=== PATIENT | female | born 1980 | race Asian ===

== ENCOUNTER 2021-11-03 05:53 | Observation (INO) | payer OTHER, BC ==
[2021-10-28 12:06] LABS: BASOPHILS % (AUTO) 0.4 % (0.0-5.0); HEMATOCRIT 41.8 % (36-48); LYMPHOCYTES % (AUTO) 32.3 % (21.0-51.0); MEAN CORPUSCULAR HEMOGLOBIN 32.2 pg (27.0-33.0); MEAN CORPUSCULAR VOLUME 94.8 fL (79-99); MONOCYTES % (AUTO) 8.3 % (3.0-13.0); NEUTROPHILS % (AUTO) 57.8 % (40.0-77.0); PLATELET COUNT (AUTO) 246 K/uL (130-400); RED BLOOD CELL COUNT(AUTO) 4.41 MIL/uL (4.00-5.50); RED CELL DISTRIBUTION WIDTH 11.9 % (11.0-15.5); WHITE BLOOD COUNT (AUTO) 4.9 K/uL (4.8-10.8)
[2021-11-02 08:59] VITALS: BP 107/57
[2021-11-03] VITALS (26 sets, daily range): BP systolic 90–127; BP diastolic 42–81
[~2021-11-03] VITALS: Ht 149.9 cm; Wt 51.8 kg
[~2021-11-03 05:53] MED LIST: CETI-89 PO; MELATONIN PO; METO25TA6 PO; MULTIVITAMIN PO
[2021-11-03] MEDS ORDERED: MIDAZOLAM HCL 1 MG/ML 2ML VIAL ONE ×2 (06:24→06:51)
[2021-11-03] MEDS ORDERED: FENTANYL CITRATE PF 50 MCG/1 ML 2ML VIAL ONE ×2 (06:24)
[2021-11-03] MEDS ORDERED: PROPOFOL 10 MG/ML 20ML VIAL IV ONE (06:35)
[2021-11-03] MEDS ORDERED: ROCURONIUM 10MG/1ML SYR 10 MG/ML ML ONE (06:36)
[2021-11-03] MEDS ORDERED: CEFAZOLIN SODIUM 1 GM VIAL ONE (06:36)
[2021-11-03] MEDS ORDERED: MORPHINE PF 100MG/10ML AMP IV ONE (06:37)
[2021-11-03] MEDS ORDERED: ONDANSETRON 4MG INJ ONE (06:39)
[2021-11-03] MEDS ORDERED: SCOPOLAMINE HYDROBROMIDE 1 EACH ADH..PATCH TD ONE (06:42)
[2021-11-03] MEDS ORDERED: CEFAZOLIN SODIUM 2 GM VIAL IV ONE (07:10)
[2021-11-03] MEDS ORDERED: ESTROGENS,CONJUGATED 0.625 MG/GM 42.5 GM VAG CRM VG ONE (07:51)
[2021-11-03] MEDS ORDERED: LACTATED RINGERS 1000ML 1,000 ML IV SCH (08:00)
[2021-11-03] MEDS ORDERED: CEFAZOLIN SODIUM 1 GM VIAL IVP ONE (08:00)
[2021-11-03] MEDS ORDERED: NEOSTIGMINE 5MG/5ML SYR IV ONE (08:05)
[2021-11-03] MEDS ORDERED: GLYCOPYRROLATE 1 MG/5 ML SYRINGE ONE (08:05)
[2021-11-03] MEDS ORDERED: PROMETHAZINE HCL 25 MG/ML 1ML AMPULE IM PRN ×2 (11:00)
[2021-11-03] MEDS ORDERED: BISACODYL 10 MG SUPP.RECT RC PRN (11:00)
[2021-11-03] MEDS ORDERED: IBUPROFEN 600 MG TABLET PO PRN (11:00)
[2021-11-03] MEDS ORDERED: MEPERIDINE-PF 75 MG/ML SYG IM PRN (11:00)
[2021-11-03] MEDS ORDERED: ACETAMINOPHEN WITH CODEINE 1 TAB TAB PO PRN (11:00)
[2021-11-03] MEDS ORDERED: ONDANSETRON 4MG INJ IVP PRN (12:00)
[2021-11-03] MEDS: DEXTROSE 5 %-0.45 % NACL 1,000 ML IV PRN ×2 (12:03→18:25)
[2021-11-03] MEDS: CEFAZOLIN SODIUM 1 GM VIAL IVP SCH (15:58)
[2021-11-03] MEDS ORDERED: FLU VACC QS2021-22(6MOS UP)/PF 60 MCG/0.5 ML ML IM ONE (21:00)
[2021-11-03] MEDS: DOCUSATE SODIUM 100 MG CAP PO PRN (21:24)
[2021-11-03] MEDS: SIMETHICONE 80 MG TAB.CHEW PO PRN (21:24)
[2021-11-04] MEDS: CEFAZOLIN SODIUM 1 GM VIAL IVP SCH (00:06)
[2021-11-04] MEDS: DEXTROSE 5 %-0.45 % NACL 1,000 ML IV PRN (02:41)
[2021-11-04] MEDS ORDERED: IBUPROFEN 800 MG TAB PO PRN (03:00)
[2021-11-04] MEDS ORDERED: HYDROCODONE/ACETAMINOPHEN 5/325 MG TAB PO PRN (03:00)
[2021-11-04] MEDS ORDERED: ACETAMINOPHEN WITH CODEINE 1 TAB TAB PO PRN (03:00)
[2021-11-04 03:49] VITALS: BP 111/48
[2021-11-04 06:41] LABS: HEMATOCRIT 32.5 % (36-48); MEAN CORPUSCULAR HEMOGLOBIN 32.2 pg (27.0-33.0); MEAN CORPUSCULAR HGB CONC 33.5 g/dL (32.0-36.0); MEAN CORPUSCULAR VOLUME 95.9 fL (79-99); RED BLOOD CELL COUNT(AUTO) 3.39 MIL/uL (4.00-5.50); RED CELL DISTRIBUTION WIDTH 11.9 % (11.0-15.5); WHITE BLOOD COUNT (AUTO) 5.3 K/uL (4.8-10.8)
[2021-11-04 08:00] VITALS: BP 92/56
[2021-11-04] MEDS: DOCUSATE SODIUM 100 MG CAP PO PRN (09:14)
[2021-11-04] MEDS: SIMETHICONE 80 MG TAB.CHEW PO PRN (09:14)
[2021-11-04] MEDS ORDERED: ACET1TAB25 PO (09:46)
== END 2021-11-04 10:25 | disposition home or self-care (01) ==
LOC: DAH 05:53 → DAHIP 05:54 → DAH 05:54 → WSH 10:00
PROVIDERS: ADMIT Obstetrics & Gynecology; ATTEND Obstetrics & Gynecology
DX: N81.2 Incomplete uterovaginal prolapse (principal); Z20.822 Contact with and (suspected) exposure to COVID-19; N92.0 Excessive and frequent menstruation with regular cycle; Z90.710 Acquired absence of both cervix and uterus; Z79.899 Other long term (current) drug therapy; Z98.890 Other specified postprocedural states; Z23 Encounter for immunization; Z71.85 Encounter for immunization safety counseling
CPT/HCPCS: 58260; G0008; 36415; 84703; 85025; 85027; 86850; 86900; 86901; 87635; 90471; 90686; 96374; 96375; 96376; A4344; A4351; C9803; G0378; J0690; J2250; J2274; J2405; J2704; J2710; J3010; J3490; J7120; Q2035

== ENCOUNTER → 2023-09-08 | Outpatient (CLI) | payer OTHER, BC ==
[~2023-09-08] MED LIST changes: +ACET-2079 PO
[2023-09-08 12:14] LABS: BASOPHILS # (AUTO) 0.02 K/uL (0.00-0.20); BASOPHILS % (AUTO) 0.4 % (0.0-5.0); EOSINOPHILS # (AUTO) 0.06 K/uL (0.00-0.70); EOSINOPHILS % (AUTO) 1.2 % (0.0-8.0); HEMATOCRIT 40.4 % (36-48); IMMATURE GRANULOCYTE ABSOLUTE 0.01 K/uL (0-1); LYMPHOCYTES # (AUTO) 1.9 K/uL (1.0-4.8); LYMPHOCYTES % (AUTO) 36.3 % (21.0-51.0); MEAN CORPUSCULAR HEMOGLOBIN 32.2 pg (27.0-33.0); MEAN CORPUSCULAR HGB CONC 33.9 g/dL (32.0-36.0); MEAN CORPUSCULAR VOLUME 95.1 fL (79-99); MONOCYTES # (AUTO) 0.4 K/uL (0.1-1.0); MONOCYTES % (AUTO) 8.4 % (3.0-13.0); NEUTROPHILS # (AUTO) 2.8 K/uL (1.8-7.7); NEUTROPHILS % (AUTO) 53.5 % (40.0-77.0); PLATELET COUNT (AUTO) 278 K/uL (130-400); RED BLOOD CELL COUNT(AUTO) 4.25 MIL/uL (4.00-5.50); WHITE BLOOD COUNT (AUTO) 5.1 K/uL (4.8-10.8)
[2023-09-08 12:37] LABS: ALBUMIN 3.7 g/dL (3.5-5.0); BILIRUBIN,TOTAL 0.3 mg/dL (0.2-1.0); CREATININE 0.7 mg/dL (0.5-1.5); MAGNESIUM 1.8 mg/dL (1.80-2.40); POTASSIUM 3.8 mmol/L (3.5-5.1); TOTAL PROTEIN, SERUM 7.5 g/dL (6.0-8.3)
== END | disposition home or self-care (01) ==
LOC: LAB 11:06
PROVIDERS: ATTEND Internal Medicine Cardiovascular Disease
DX: R00.2 Palpitations (principal)
CPT/HCPCS: 36415; 80053; 83735; 84439; 84443; 85025